=== PATIENT | female | born 1970 | race Caucasian/White ===

== ENCOUNTER 2023-07-01 12:58 | Outpatient (CLI) | payer OTHER, SELFPAY | END 2023-07-01 12:59 | disposition home or self-care (01) | PROVIDERS: PCP Family Medicine; Visit Provider Otolaryngology | DX: H69.90 Unspecified Eustachian tube disorder, unspecified ear (principal); H91.20 Sudden idiopathic hearing loss, unspecified ear; Z86.69 Personal history of other diseases of the nervous system and sense organs; J30.2 Other seasonal allergic rhinitis | CPT/HCPCS: 92557; 92567 ==

== ENCOUNTER 2025-06-04 13:18 | Emergency (ER) | payer OTHER, SELFPAY ==
--- NOTE | 2025-06-04 13:49 | PC.NURSE ---
Pt left ED in NAD w steady gait.
== END 2025-06-04 14:03 | disposition left against medical advice (07) ==
PROVIDERS: PCP Family Medicine
DX: S09.90XA Unspecified injury of head, initial encounter (principal); V00.211A Fall from ice-skates, initial encounter
CPT/HCPCS: 99199